=== PATIENT | female | born 1980 | race Caucasian/White ===

== ENCOUNTER → 2023-06-16 14:45 | Outpatient (REF) | payer BC, SELFPAY | LOC: HWWDC 14:45 | PROVIDERS: ATTENDING PHYSICIAN Obstetrics & Gynecology; FAMILY PHYSICIAN Nurse Practitioner Family | DX: Z12.31 Encounter for screening mammogram for malignant neoplasm of breast (principal) | CPT/HCPCS: 77063; 77067 ==

== ENCOUNTER → 2024-03-05 13:36 | Outpatient (REF) | payer BC, SELFPAY | LOC: WDC 13:36 | PROVIDERS: ATTENDING PHYSICIAN Nurse Practitioner Family | DX: R92.333 Mammographic heterogeneous density, bilateral breasts (principal) | CPT/HCPCS: 76641 ==

== ENCOUNTER → 2024-08-05 12:03 | Outpatient (REF) | payer BC, SELFPAY | LOC: HWWDC 12:03 | PROVIDERS: ATTENDING PHYSICIAN Obstetrics & Gynecology; FAMILY PHYSICIAN Family Medicine | DX: Z12.31 Encounter for screening mammogram for malignant neoplasm of breast (principal) | CPT/HCPCS: 77063; 77067 ==